=== PATIENT | female | born 1995 | race Caucasian/White ===

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

== ENCOUNTER 2017-04-05 20:45 | Emergency (ER) | payer SELFPAY ==
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
[2017-04-05 23:10] VITALS: BP 98/67
== END 2017-04-05 23:11 | disposition home or self-care (01) ==
LOC: ED 20:45
DX: S06.0X0A Concussion without loss of consciousness, initial encounter (principal); S16.1XXA Strain of muscle, fascia and tendon at neck level, initial encounter; V44.5XXA Car driver injured in collision with heavy transport vehicle or bus in traffic accident, initial encounter; Y92.410 Unspecified street and highway as the place of occurrence of the external cause
CPT/HCPCS: 99281

== ENCOUNTER 2018-01-31 17:48 | Emergency (ER) | payer OTHER ==
[2018-01-31 17:55] VITALS: BP 103/74
--- NOTE | 2018-01-31 18:10 | UC ---
Throat Pain/Nasal Kevin HPI - HPI Summary HPI Summary: 22-year-old woman comes to clinic today with a chief complaint of sore throat and fever. Patient's been sick for about 5 days. She was at [facility] and was diagnosed with pharyngitis and started on Pen-Vee K. No strep test done at that time. She had one dose of that this afternoon. Patient has surgery scheduled on 02/04/18. When she discussed the infection with her surgeon the surgeon wants to know whether or not this is strep throat and so the patient arrives here in clinic for a strep test. Some runny nose mild bilateral ear pressure. No cough or chest congestion. - History of Current Complaint Chief Complaint: UCGeneralIllness Stated Complaint: FEVER,SORE THROAT Time Seen by Provider: 01/31/18 17:58 Hx Last Menstrual Period: just finished 1 week ago Pain Intensity: 3 - Allergies/Home Medications Allergies/Adverse Reactions: Allergies Allergy/AdvReac Type Severity Reaction Status Date / Time No Known Allergies Allergy Verified 01/31/18 17:56 Home Medications: Home Medications Acetaminophen [Tylenol] 2 tab PO ONCE PRN 01/31/18 [History Confirmed 01/31/18] Penicillin VK 500 MG TAB(NF) [Penicillin VK 500 mg Tab] 500 mg PO BID 01/31/18 [ History Confirmed 01/31/18] guaiFENesin [Mucinex] 600 mg PO DAILY PRN 01/31/18 [History Confirmed 01/31/18] PMH/Surg Hx/FS Hx/Imm Hx Previously Healthy: Yes Other History Of: Negative For: Anticoagulant Therapy - Surgical History Surgical History: None Surgery Procedure, Year, and Place: n/a - Family History Known Family History: Positive: None - Social History Alcohol Use: Weekly Substance Use Type: None Smoking Status (MU): Never Smoked Tobacco Review of Systems All Other Systems Reviewed And Are Negative: Yes Constitutional: Positive: Fever, Chills Skin: Positive: Negative Eyes: Positive: Negative ENT: Positive: Sore Throat, Ear Ache, Nasal Discharge Respiratory: Positive: Negative Cardiovascular: Positive: Negative Gastrointestinal: Positive: Negative Motor: Positive: Negative Neurovascular: Positive: Negative Musculoskeletal: Positive: Negative Neurological: Positive: Negative Psychological: Positive: Negative Is Patient Immunocompromised?: No Physical Exam Triage Information Reviewed: Yes Appearance: No Pain Distress, Well-Nourished, Ill-Appearing - mild Vital Signs: Initial Vital Signs Temp 98.4 F 01/31/18 17:51 Pulse 84 01/31/18 17:51 Resp 16 01/31/18 17:51 BP 103/74 01/31/18 17:51 Pulse Ox 99 01/31/18 17:51 Vital Signs Reviewed: Yes Eye Exam: Normal Eyes: Positive: Conjunctiva Clear ENT: Positive: Pharyngeal erythema, Nasal congestion, Nasal drainage, TM dull - b/l Neck exam: Normal Neck: Positive: Supple Respiratory: Positive: Lungs clear, Normal breath sounds, No respiratory distress Cardiovascular: Positive: RRR Musculoskeletal Exam: Normal Musculoskeletal: Positive: Strength Intact, ROM Intact Neurological Exam: Normal Neurological: Positive: Alert, Muscle Tone Normal Psychological Exam: Normal Psychological: Positive: Normal Response To Family, Age Appropriate Behavior Skin Exam: Normal Throat Pain/Nasal Course/Dx - Differential Dx/Diagnosis Provider Diagnosis: Pharyngitis Discharge - Sign-Out/Discharge Documenting (check all that apply): Patient Departure All imaging exams completed and their final reports reviewed: No Studies - Discharge Plan Condition: Stable Disposition: HOME Patient Education Materials: Pharyngitis (ED) Referrals: [facility] [Provider Group] Additional Instructions: FOLLOW UP WITH YOUR DOCTOR IF NOT COMPLETELY IMPROVED. GET RECHECKED FOR ANY WORSENING OF YOUR CONDITION OR QUESTIONS OR CONCERNS. - Billing Disposition and Condition Condition: STABLE Disposition: Home
== END 2018-01-31 18:41 | disposition home or self-care (01) ==
LOC: UCEAST 17:48
DX: J02.9 Acute pharyngitis, unspecified (principal)
CPT/HCPCS: 87651; 99211; G0463